=== PATIENT | male | born 1945 | race African-American/Black ===

== ENCOUNTER 2020-11-22 14:34 | Inpatient (IN) | payer MEDICARE, MEDICAID ==
[~2020-11-22] VITALS: Ht 175.3 cm; Wt 58.0 kg
[2020-11-22] MEDS ORDERED: SUPER BETA PROSTATE PO (14:47)
[2020-11-22] MEDS ORDERED: CHOL500043 PO (14:47)
[2020-11-22] MEDS ORDERED: ACET-3385 PO (14:47)
[2020-11-22] MEDS ORDERED: OMEP10 PO (14:47)
[2020-11-22] MEDS ORDERED: HYDR25TA2 PO (14:47)
[2020-11-22] MEDS ORDERED: ALLO100T2 PO (14:47)
[2020-11-22] MEDS ORDERED: AMLO-257 PO (14:47)
[2020-11-22 15:30] LABS: APPEARANCE,URINE CLEAR (CLEAR); BILIRUBIN,URINE NEGATIVE (NEGATIVE); GLUCOSE, URINE (UA) >=1000 mg/dL (NEGATIVE); KETONES,URINE 40 mg/dL (NEGATIVE); LEUKOCYTE ESTERASE ,URINE NEGATIVE (NEGATIVE); NITRATE,URINE NEGATIVE (NEGATIVE); OCCULT BLOOD,URINE LARGE (NEGATIVE); PROTEIN,URINE NEGATIVE (NEGATIVE); UROBILINOGEN,URINE 0.2 mg/dL (<=1.0)
[2020-11-22 15:43] LABS: BACTERIA,URINE Rare /HPF (None Seen); RBC,URINE None Seen /HPF (0-2); WBC,URINE 0-2 /HPF (0-5)
[2020-11-22 15:44] LABS: YEAST,URINE Few /HPF (None Seen)
[2020-11-22] MEDS ORDERED: SODIUM CHLORIDE 0.9% 1,000 ML IV ONE (15:45)
[2020-11-22 16:14] LABS: ABG A-A DIFF O2 12.7 mmHg (10-20.0); ABG BASE EXCESS -18.5 mmol/L (-2.0-3.0); ABG HCO3 12.1 mmol/L (22.0-26.0); ABG METHEMOGLOBIN 0.3 % (0.0-1.5); ABG OXYGEN CONTENT 18.9 mL/dL (15.0-23.0); ABG OXYGEN SATURATION 97.3 % (95.0-98.0); ABG PCO2 24 mmHg (35-45); ABG PH 7.215 (7.35-7.450); ABG TOTAL HEMOGLOBIN 13.8 G/dL (12.0-18.0); PO2, ARTERIAL BG 108.9 mmHg (75.0-83.0); SOURCE, BLOOD GAS ARTERIAL; TEMPERATURE, FAHRENHEIT, BG 98.6 FAHREN (96.0-98.6)
[2020-11-22 16:15] LABS: O2 DEVICE,BLOOD GAS ROOM AIR (ROOM AIR); SITE, BLOOD GAS LFT RADIAL
[2020-11-22 16:23] LABS: BASOPHILS % (AUTO) 0.6 % (0.0-2.0); EOSINOPHILS % (AUTO) 0 % (1.0-6.0); HEMOGLOBIN 13.1 g/dL (13.5-17.5); LYMPHOCYTES # (AUTO) 0.3 K/uL (1.0-4.8); MEAN CORPUSCULAR HEMOGLOBIN 33.1 pg (26.0-34.0); MEAN CORPUSCULAR HGB CONC 30.5 G/dL (31.0-37.0); MEAN CORPUSCULAR VOLUME 108 fL (80-100); MONOCYTES # (AUTO) 0.8 K/uL (0.1-1.0); MONOCYTES % (AUTO) 5.4 % (2.0-9.0); NEUTROPHILS # (AUTO) 14.2 K/uL (1.8-7.7); RED BLOOD CELL COUNT(AUTO) 3.97 MIL/uL (4.50-5.90); RED CELL DISTRIBUTION WIDTH 13.3 % (11.5-14.5)
[2020-11-22 16:36] LABS: INR 1.1 (0.9-1.1); PROTHROMBIN TIME 11.2 SEC (9.4-11.6)
[2020-11-22 16:46] LABS: B-TYPE NATRIURETIC PEPTIDE 150 pg/mL (0-100)
[2020-11-22 17:03] LABS: PLATELET COUNT (AUTO) 798 K/uL (150-450)
[2020-11-22 17:12] LABS: COVID AG,FIA SOURCE NASOPHARYNGEAL
[2020-11-22 17:53] LABS: ALANINE AMINOTRANSFERASE 74 U/L (12-78); ALBUMIN 4.1 g/dL (3.4-5.0); ALKALINE PHOSPHATASE 146 U/L (46-116); ANION GAP 39 mmol/L (8-16); ASPARTATE AMINOTRANSFERASE 77 U/L (15-37); BILIRUBIN,TOTAL 0.7 mg/dL (0.1-1.0); CARBON DIOXIDE 10 mmol/L (22-29); CHLORIDE 79 mmol/L (98-107); CREATINE KINASE, TOTAL ONLY 898 U/L (39-308); CREATININE 3.14 mg/dL (0.60-1.30); GLOMERULAR FILTR. RATE CALC 24 mL/min (>60); PHOSPHORUS 7.6 mg/dL (2.5-4.9); SODIUM SERUM 128 mmol/L (136-145); TOTAL PROTEIN, SERUM 8.4 g/dL (6.4-8.2); UREA NITROGEN, BLOOD 66 mg/dL (7-18)
[2020-11-22] MEDS ORDERED: INSULIN REGULAR, HUMAN 100 UNITS/ML IVP ONE ×2 (18:00→21:45)
[2020-11-22] MEDS ORDERED: INSULIN REGULAR, HUMAN 100 UNITS/ML IVP PRN ×2 (18:00→22:00)
[2020-11-22] MEDS ORDERED: DEXTROSE 5%-0.45% SODIUM CHL 1,000 ML IV PRN ×2 (18:00→22:00)
[2020-11-22] MEDS ORDERED: DEXTROSE 50%-WATER 25 GM/50 ML SYRINGE IVP PRN ×2 (18:00→22:00)
[2020-11-22] MEDS ORDERED: POTASSIUM CHL 20 MEQ/0.45% NS 1,000 ML IV PRN ×2 (18:00→22:00)
[2020-11-22] MEDS ORDERED: POTASSIUM CHLORIDE 40 MEQ in SODIUM CHLORIDE 0.45% 1,000 ML IV PRN ×2 (18:00→22:00)
[2020-11-22] MEDS ORDERED: SODIUM CHLORIDE 0.9% 1,000 ML IV SCH ×3 (18:00→22:00)
[2020-11-22] MEDS ORDERED: INSULIN REGULAR, HUMAN 100 UNITS in SODIUM CHLORIDE 0.9% 99 ML IV PRN ×6 (18:00→22:00)
[2020-11-22] MEDS ORDERED: SODIUM CHLORIDE 0.45% 1,000 ML IV PRN ×3 (18:00→22:00)
[2020-11-22 18:04] LABS: PLATELET MORPHOLOGY COMMENT GIANT PLTS PRESENT
[2020-11-22] MEDS ORDERED: ONDANSETRON HCL 4 MG/2 ML VIAL IVP PRN (18:15)
[2020-11-22] MEDS ORDERED: ACETAMINOPHEN 325 MG TABLET PO PRN (18:15)
[2020-11-22] MEDS: POTASSIUM CHL 20 MEQ/0.45% NS 1,000 ML IV PRN (18:23)
[2020-11-22 18:43] LABS: GLUCOSE,RANDOM 928 mg/dL (70-110)
[2020-11-22 19:56] LABS: GLUCOMETER DEV NAME(LOC) ERT.5; GLUCOSE,POINT OF CARE > 600 MG/DL (70-110)
[2020-11-22] MEDS ORDERED: HALOPERIDOL LACTATE 5 MG/ML VIAL IM ONE ×2 (20:00→21:30)
[2020-11-22 21:06] LABS: CALCIUM, TOTAL 8.8 mg/dL (8.8-10.5); CREATININE 2.93 mg/dL (0.60-1.30); POTASSIUM 3.3 mmol/L (3.5-5.1)
[2020-11-22] MEDS ORDERED: DiphenhydrAMINE HCL 50 MG/ML VIAL IM ONE (21:30)
[2020-11-22] MEDS ORDERED: LORazepam 2 MG/ML VIAL IM ONE (21:30)
[2020-11-22] MEDS: POTASSIUM CHLORIDE 40 MEQ in SODIUM CHLORIDE 0.45% 1,000 ML IV PRN (21:57)
[2020-11-22 22:25] LABS: BASOPHILS % (AUTO) 0.3 % (0.0-2.0); EOSINOPHILS % (AUTO) 0 % (1.0-6.0); HEMATOCRIT 39.3 % (41-53); HEMOGLOBIN 12.9 g/dL (13.5-17.5); LYMPHOCYTES # (AUTO) 0.4 K/uL (1.0-4.8); LYMPHOCYTES % (AUTO) 2.9 % (22.0-44.0); MEAN CORPUSCULAR HEMOGLOBIN 33.3 pg (26.0-34.0); MEAN CORPUSCULAR HGB CONC 32.8 G/dL (31.0-37.0); MEAN CORPUSCULAR VOLUME 102 fL (80-100); MONOCYTES # (AUTO) 0.2 K/uL (0.1-1.0); NEUTROPHILS # (AUTO) 14.5 K/uL (1.8-7.7); PLATELET COUNT (AUTO) 691 K/uL (150-450); RED BLOOD CELL COUNT(AUTO) 3.87 MIL/uL (4.50-5.90); RED CELL DISTRIBUTION WIDTH 12.7 % (11.5-14.5)
[2020-11-22 22:25] LABS: CALCIUM, TOTAL 8.8 mg/dL (8.8-10.5); CREATININE 2.81 mg/dL (0.60-1.30)
[2020-11-22 22:32] LABS: NEUTROPHILS % (AUTO) 95.8 % (40.0-70.0)
[2020-11-22 22:35] LABS: POTASSIUM 2.9 mmol/L (3.5-5.1)
[2020-11-22] MEDS ORDERED: POTASSIUM CHL 40 MEQ/D5-0.45NS 1,000 ML IV ONE (23:00)
[2020-11-22 23:05] LABS: PLATELET MORPHOLOGY COMMENT LARGE PLTS PRESENT
[2020-11-22] MEDS: INSULIN REGULAR, HUMAN 100 UNITS/ML IVP PRN (23:16)
[2020-11-23] MEDS: INSULIN REGULAR, HUMAN 100 UNITS/ML IVP PRN ×4 (00:13→23:23)
[2020-11-23] MEDS: HEPARIN SODIUM,PORCINE 5,000 UNITS/ML VIAL SQ SCH ×4 (00:14→23:47)
[2020-11-23 01:14] LABS: GLUCOMETER DEV NAME(LOC) ERT.5; GLUCOSE,POINT OF CARE 474 MG/DL (70-110)
[2020-11-23 01:14] LABS: GLUCOMETER DEV NAME(LOC) ERT.5; GLUCOSE,POINT OF CARE 283 MG/DL (70-110)
[2020-11-23 02:09] LABS: GLUCOMETER DEV NAME(LOC) ERT.5; GLUCOSE,POINT OF CARE 168 MG/DL (70-110)
[2020-11-23] MEDS: DEXTROSE 5%-0.45% SODIUM CHL 1,000 ML IV PRN ×2 (02:12→18:23)
[2020-11-23 03:16] LABS: GLUCOMETER DEV NAME(LOC) ERT.5; GLUCOSE,POINT OF CARE 120 MG/DL (70-110)
[2020-11-23 03:27] LABS: CREATININE 2.03 mg/dL (0.60-1.30)
[2020-11-23 03:54] LABS: GLUCOMETER DEV NAME(LOC) ERT.5; GLUCOSE,POINT OF CARE 91 MG/DL (70-110)
[2020-11-23] MEDS: DEXTROSE 50%-WATER 25 GM/50 ML SYRINGE IVP PRN ×2 (05:14→08:40)
[2020-11-23 05:20] LABS: GLUCOMETER DEV NAME(LOC) ERT.5; GLUCOSE,POINT OF CARE 46 MG/DL (70-110)
[2020-11-23 05:46] LABS: GLUCOMETER DEV NAME(LOC) ERT.5; GLUCOSE,POINT OF CARE 202 MG/DL (70-110)
[2020-11-23 06:02] LABS: GLUCOMETER DEV NAME(LOC) ERT.5; GLUCOSE,POINT OF CARE 181 MG/DL (70-110)
[2020-11-23] MEDS: POTASSIUM CHLORIDE 40 MEQ in SODIUM CHLORIDE 0.45% 1,000 ML IV PRN (06:18)
[2020-11-23 06:36] LABS: GLUCOMETER DEV NAME(LOC) ERT.5; GLUCOSE,POINT OF CARE 187 MG/DL (70-110)
[2020-11-23 07:10] LABS: GLUCOMETER DEV NAME(LOC) ERT.5; GLUCOSE,POINT OF CARE 129 MG/DL (70-110)
[2020-11-23 08:22] LABS: ALBUMIN 3.6 g/dL (3.4-5.0); BILIRUBIN,TOTAL 0.7 mg/dL (0.1-1.0); CALCIUM, TOTAL 8.1 mg/dL (8.8-10.5); CREATININE 1.73 mg/dL (0.60-1.30); MAGNESIUM 2.3 mg/dL (1.80-2.40); PHOSPHORUS 1.5 mg/dL (2.5-4.9); POTASSIUM 3.1 mmol/L (3.5-5.1); TOTAL PROTEIN, SERUM 7.2 g/dL (6.4-8.2)
[2020-11-23 08:40] LABS: GLUCOSE,POINT OF CARE 60 MG/DL (70-110)
[2020-11-23] MEDS ORDERED: POTASSIUM PHOS,M-BASIC-D-BASIC 30 MEQ in DEXTROSE 5%-WATER 150 ML IV ONE (09:30)
[2020-11-23 09:49] LABS: GLUCOMETER DEV NAME(LOC) ERT.5; GLUCOSE,POINT OF CARE 201 MG/DL (70-110)
[2020-11-23 10:38] LABS: GLUCOSE,POINT OF CARE 198 MG/DL (70-110)
[2020-11-23 11:25] LABS: GLUCOSE,POINT OF CARE 182 MG/DL (70-110)
[2020-11-23 12:24] LABS: CALCIUM, TOTAL 8.1 mg/dL (8.8-10.5); CREATININE 1.47 mg/dL (0.60-1.30); POTASSIUM 3.9 mmol/L (3.5-5.1)
[2020-11-23 12:29] LABS: GLUCOSE,POINT OF CARE 220 MG/DL (70-110)
[2020-11-23 14:01] LABS: GLUCOSE,POINT OF CARE 285 MG/DL (70-110)
[2020-11-23 16:14] LABS: CALCIUM, TOTAL 8.4 mg/dL (8.8-10.5); CREATININE 1.53 mg/dL (0.60-1.30)
[2020-11-23 16:40] LABS: GLUCOSE,POINT OF CARE 251 MG/DL (70-110)
[2020-11-23 17:53] LABS: GLUCOSE,POINT OF CARE 280 MG/DL (70-110)
[2020-11-23 18:49] LABS: GLUCOSE,POINT OF CARE 234 MG/DL (70-110)
[2020-11-23 20:00] LABS: ANION GAP 13 mmol/L (8-16); CALCIUM, TOTAL 8.7 mg/dL (8.8-10.5); CARBON DIOXIDE 19 mmol/L (22-29); CHLORIDE 107 mmol/L (98-107); CREATININE 1.27 mg/dL (0.60-1.30); GLUCOSE,RANDOM 291 mg/dL (70-110); POTASSIUM 3.9 mmol/L (3.5-5.1); SODIUM SERUM 139 mmol/L (136-145); UREA NITROGEN, BLOOD 37 mg/dL (7-18)
[2020-11-23 20:03] LABS: GLOMERULAR FILTR. RATE CALC > 60 mL/min (>60)
[2020-11-23 20:49] VITALS: BP 134/84
[2020-11-24] MEDS: INSULIN REGULAR, HUMAN 100 UNITS/ML IVP PRN ×2 (00:11→01:30)
[2020-11-24] MEDS: POTASSIUM CHLORIDE 40 MEQ in SODIUM CHLORIDE 0.45% 1,000 ML IV PRN (00:40)
[2020-11-24 01:38] LABS: CALCIUM, TOTAL 8.2 mg/dL (8.8-10.5); CREATININE 1.39 mg/dL (0.60-1.30)
[2020-11-24] MEDS: DEXTROSE 50%-WATER 25 GM/50 ML SYRINGE IVP PRN ×2 (04:13→06:12)
[2020-11-24 05:46] LABS: ANION GAP 11 mmol/L (8-16); CALCIUM, TOTAL 7.8 mg/dL (8.8-10.5); CARBON DIOXIDE 18 mmol/L (22-29); CHLORIDE 109 mmol/L (98-107); CREATININE 1.12 mg/dL (0.60-1.30); GLUCOSE,RANDOM 214 mg/dL (70-110); SODIUM SERUM 138 mmol/L (136-145); UREA NITROGEN, BLOOD 24 mg/dL (7-18)
[2020-11-24 05:47] LABS: GLOMERULAR FILTR. RATE CALC > 60 mL/min (>60)
[2020-11-24 06:15] LABS: ANION GAP 7 mmol/L (8-16); CALCIUM, TOTAL 8.5 mg/dL (8.8-10.5); CARBON DIOXIDE 27 mmol/L (22-29); CHLORIDE 106 mmol/L (98-107); CREATININE 0.81 mg/dL (0.60-1.30); GLUCOSE,RANDOM 104 mg/dL (70-110); POTASSIUM 4.2 mmol/L (3.5-5.1); SODIUM SERUM 140 mmol/L (136-145); UREA NITROGEN, BLOOD 15 mg/dL (7-18)
[2020-11-24 06:16] LABS: GLOMERULAR FILTR. RATE CALC > 60 mL/min (>60)
[2020-11-24 08:00] VITALS: BP 178/70
[2020-11-24] MEDS: HEPARIN SODIUM,PORCINE 5,000 UNITS/ML VIAL SQ SCH ×2 (08:10→16:26)
[2020-11-24] MEDS: POTASSIUM CHL 20 MEQ/0.45% NS 1,000 ML IV PRN (08:11)
[2020-11-24] MEDS: CHOLECALCIFEROL (VIT D3) 5,000 [125 MCG] UNITS CAPSULE PO SCH (10:46)
[2020-11-24] MEDS: AmLODIPine BESYLATE 5 MG TABLET PO SCH (10:46)
[2020-11-24] MEDS ORDERED: SODIUM CHLORIDE 0.9% 1,000 ML IV ONE (11:30)
[2020-11-24] MEDS ORDERED: DEXTROSE 50%-WATER 25 GM/50 ML SYRINGE IVP PRN (11:30)
[2020-11-24 12:00] VITALS: BP 154/62
[2020-11-24 13:13] LABS: BASOPHILS % (AUTO) 0.4 % (0.0-2.0); EOSINOPHILS % (AUTO) 0.3 % (1.0-6.0); HEMATOCRIT 36.3 % (41-53); HEMOGLOBIN 12.3 g/dL (13.5-17.5); LYMPHOCYTES # (AUTO) 1.1 K/uL (1.0-4.8); LYMPHOCYTES % (AUTO) 12.3 % (22.0-44.0); MEAN CORPUSCULAR HEMOGLOBIN 33.5 pg (26.0-34.0); MEAN CORPUSCULAR HGB CONC 33.8 G/dL (31.0-37.0); MEAN CORPUSCULAR VOLUME 99 fL (80-100); MONOCYTES # (AUTO) 0.9 K/uL (0.1-1.0); MONOCYTES % (AUTO) 10.1 % (2.0-9.0); NEUTROPHILS % (AUTO) 76.9 % (40.0-70.0); PLATELET COUNT (AUTO) 523 K/uL (150-450); RED BLOOD CELL COUNT(AUTO) 3.66 MIL/uL (4.50-5.90); RED CELL DISTRIBUTION WIDTH 12.9 % (11.5-14.5)
[2020-11-24 13:22] LABS: CREATININE,URINE RANDOM 59.5 mg/dL (30.0-125.0)
[2020-11-24 16:00] VITALS: BP 133/70
[2020-11-24] MEDS: LABETALOL HCL 100 MG TABLET PO SCH ×2 (16:26→21:56)
[2020-11-24] MEDS: INSULIN LISPRO 100 UNITS/ML SQ PRN (17:50)
[2020-11-24 20:03] VITALS: BP 100/54
[2020-11-25] MEDS: HEPARIN SODIUM,PORCINE 5,000 UNITS/ML VIAL SQ SCH ×2 (00:02→09:02)
[2020-11-25 00:04] VITALS: BP 99/54
[2020-11-25] MEDS: INSULIN LISPRO 100 UNITS/ML SQ PRN ×3 (01:25→11:58)
[2020-11-25 04:01] VITALS: BP 127/78
[2020-11-25 06:35] LABS: ANION GAP 7 mmol/L (8-16); CALCIUM, TOTAL 8.3 mg/dL (8.8-10.5); CARBON DIOXIDE 22 mmol/L (22-29); CHLORIDE 111 mmol/L (98-107); CREATININE 1.14 mg/dL (0.60-1.30); GLUCOSE,RANDOM 231 mg/dL (70-110); POTASSIUM 3.6 mmol/L (3.5-5.1); SODIUM SERUM 140 mmol/L (136-145); UREA NITROGEN, BLOOD 19 mg/dL (7-18)
[2020-11-25 06:41] LABS: GLOMERULAR FILTR. RATE CALC > 60 mL/min (>60)
[2020-11-25 08:00] VITALS: BP 143/61
[2020-11-25] MEDS: CHOLECALCIFEROL (VIT D3) 5,000 [125 MCG] UNITS CAPSULE PO SCH (09:02)
[2020-11-25] MEDS: LABETALOL HCL 100 MG TABLET PO SCH (09:02)
[2020-11-25] MEDS: AmLODIPine BESYLATE 5 MG TABLET PO SCH (09:02)
[2020-11-25] MEDS ORDERED: INSLAN SQ (11:15)
[2020-11-25] MEDS ORDERED: METF-960 PO (11:18)
[2020-11-25] MEDS ORDERED: ASPI81TA87 PO (11:18)
[2020-11-26 17:06] LABS: GLUCOSE,POINT OF CARE 383 MG/DL (70-110)
[2020-11-26 17:06] LABS: GLUCOSE,POINT OF CARE 113 MG/DL (70-110)
[2020-11-26 17:06] LABS: GLUCOSE,POINT OF CARE 209 MG/DL (70-110)
[2020-11-26 17:08] LABS: GLUCOSE,POINT OF CARE 429 MG/DL (70-110)
[2020-11-26 17:08] LABS: GLUCOSE,POINT OF CARE 396 MG/DL (70-110)
[2020-11-26 17:08] LABS: GLUCOSE,POINT OF CARE 366 MG/DL (70-110)
[2020-11-26 17:08] LABS: GLUCOSE,POINT OF CARE 83 MG/DL (70-110)
[2020-11-26 17:08] LABS: GLUCOSE,POINT OF CARE 303 MG/DL (70-110)
[2020-11-26 17:08] LABS: GLUCOSE,POINT OF CARE 120 MG/DL (70-110)
[2020-11-26 17:08] LABS: GLUCOSE,POINT OF CARE 372 MG/DL (70-110)
[2020-11-26 17:09] LABS: GLUCOSE,POINT OF CARE 181 MG/DL (70-110)
[2020-11-26 17:09] LABS: GLUCOSE,POINT OF CARE 187 MG/DL (70-110)
[2020-11-26 17:09] LABS: GLUCOSE,POINT OF CARE 279 MG/DL (70-110)
[2020-11-26 17:09] LABS: GLUCOSE,POINT OF CARE 340 MG/DL (70-110)
[2020-11-26 17:09] LABS: GLUCOSE,POINT OF CARE 37 MG/DL (70-110)
[2020-11-26 17:09] LABS: GLUCOSE,POINT OF CARE 67 MG/DL (70-110)
[2020-11-26 17:09] LABS: GLUCOSE,POINT OF CARE 76 MG/DL (70-110)
== END 2020-11-25 12:40 | disposition home or self-care (01) | DRG 637 ==
LOC: EMS 14:34 → ICU 11-23 18:55
PROVIDERS: ADMIT Internal Medicine; ATTEND Internal Medicine
DX: E11.10 Type 2 diabetes mellitus with ketoacidosis without coma (principal); G93.41 Metabolic encephalopathy; R65.11 Systemic inflammatory response syndrome (SIRS) of non-infectious origin with acute organ dysfunction; N17.9 Acute kidney failure, unspecified; Z20.822 Contact with and (suspected) exposure to COVID-19; D64.9 Anemia, unspecified; D47.3 Essential (hemorrhagic) thrombocythemia; I10 Essential (primary) hypertension; N28.1 Cyst of kidney, acquired; M19.90 Unspecified osteoarthritis, unspecified site; K21.9 Gastro-esophageal reflux disease without esophagitis; M10.9 Gout, unspecified; F12.90 Cannabis use, unspecified, uncomplicated; F17.210 Nicotine dependence, cigarettes, uncomplicated; Z72.89 Other problems related to lifestyle; Z79.4 Long term (current) use of insulin; Z87.19 Personal history of other diseases of the digestive system; Z87.448 Personal history of other diseases of urinary system
CPT/HCPCS: 36600; 71045; 76770; 80048; 80053; 81001; 82009; 82550; 82570; 82805; 82947; 82962; 83036; 83735; 83880; 83930; 84100; 84156; 84484; 85025; 85610; 85730; 87081; 93005; 99291; G0378; J1200; J1630; J1644; J1815; J2060; J3480; J3490; J7030; J7050; J7060; 36415-L1; 36415-TC

== ENCOUNTER 2020-12-04 18:28 | Emergency (ER) | payer MEDICARE, MEDICAID ==
[~2020-12-04] VITALS: Ht 167.6 cm; Wt 72.5 kg
[~2020-12-04 18:28] MED LIST: ALLO100T2 PO; AMLO-257 PO; ASPI81TA87 PO; CHOL500043 PO; INSLAN SQ; METF-960 PO; SUPER BETA PROSTATE PO
[2020-12-04 19:31] VITALS: BP 112/63
[2020-12-04 19:56] LABS: BASOPHILS % (AUTO) 0.4 % (0.0-2.0); EOSINOPHILS % (AUTO) 1.2 % (1.0-6.0); HEMATOCRIT 32.2 % (41-53); HEMOGLOBIN 10.7 g/dL (13.5-17.5); LYMPHOCYTES # (AUTO) 1.7 K/uL (1.0-4.8); LYMPHOCYTES % (AUTO) 20.8 % (22.0-44.0); MEAN CORPUSCULAR HGB CONC 33.3 G/dL (31.0-37.0); MEAN CORPUSCULAR VOLUME 102 fL (80-100); MONOCYTES # (AUTO) 0.4 K/uL (0.1-1.0); MONOCYTES % (AUTO) 5.1 % (2.0-9.0); NEUTROPHILS # (AUTO) 6.1 K/uL (1.8-7.7); NEUTROPHILS % (AUTO) 72.5 % (40.0-70.0); PLATELET COUNT (AUTO) 653 K/uL (150-450); RED BLOOD CELL COUNT(AUTO) 3.15 MIL/uL (4.50-5.90)
[2020-12-04 20:00] LABS: APPEARANCE,URINE TURBID (CLEAR); BILIRUBIN,URINE PRELIM. POSITIVE (NEGATIVE); GLUCOSE, URINE (UA) 500 mg/dL (NEGATIVE); KETONES,URINE TRACE mg/dL (NEGATIVE); LEUKOCYTE ESTERASE ,URINE LARGE (NEGATIVE); NITRATE,URINE NEGATIVE (NEGATIVE); OCCULT BLOOD,URINE LARGE (NEGATIVE); PH,URINE 6.5 (5.0-8.0); PROTEIN,URINE POS 1+ (NEGATIVE)
[2020-12-04 20:01] LABS: GLUCOSE,POINT OF CARE 243 MG/DL (70-110)
[2020-12-04 20:06] LABS: ANION GAP 7 mmol/L (8-16); CALCIUM, TOTAL 9.4 mg/dL (8.8-10.5); CARBON DIOXIDE 27 mmol/L (22-29); CHLORIDE 102 mmol/L (98-107); CREATININE 1.04 mg/dL (0.60-1.30); GLOMERULAR FILTR. RATE CALC > 60 mL/min (>60); GLUCOSE,RANDOM 279 mg/dL (70-110); POTASSIUM 3.7 mmol/L (3.5-5.1); SODIUM SERUM 136 mmol/L (136-145); UREA NITROGEN, BLOOD 12 mg/dL (7-18)
[2020-12-04 20:06] LABS: BACTERIA,URINE Many /HPF (None Seen); RBC,URINE 51-100 /HPF (0-2); SQUAMOUS EPITHELIAL CELL,UR Rare /LPF (None Seen); WBC,URINE 51-100 /HPF (0-5)
[2020-12-04 20:09] LABS: INR 0.9 (0.9-1.1); PROTHROMBIN TIME 9.9 SEC (9.4-11.6)
[2020-12-04 20:12] LABS: ALANINE AMINOTRANSFERASE 45 U/L (12-78); ALBUMIN 3.4 g/dL (3.4-5.0); ALKALINE PHOSPHATASE 107 U/L (46-116); ASPARTATE AMINOTRANSFERASE 37 U/L (15-37); BILIRUBIN,TOTAL 0.3 mg/dL (0.1-1.0); TOTAL PROTEIN, SERUM 7.5 g/dL (6.4-8.2)
[2020-12-04] MEDS ORDERED: CEPHALEXIN MONOHYDRATE 500 MG CAPSULE PO ONE (20:15)
== END 2020-12-04 20:50 | disposition home or self-care (01) ==
LOC: EMS 18:38
DX: N39.0 Urinary tract infection, site not specified (principal); E11.9 Type 2 diabetes mellitus without complications; I10 Essential (primary) hypertension; F17.210 Nicotine dependence, cigarettes, uncomplicated; F12.90 Cannabis use, unspecified, uncomplicated; Z79.84 Long term (current) use of oral hypoglycemic drugs; Z79.4 Long term (current) use of insulin
CPT/HCPCS: 80053; 81001; 82962; 85025; 85610; 85730; 87086; 99283

== ENCOUNTER 2020-12-06 18:23 | Inpatient (IN) | payer MEDICARE, MEDICAID ==
[~2020-12-06] VITALS: Ht 167.6 cm; Wt 56.3 kg
[2020-12-06 19:13] LABS: GLUCOSE,POINT OF CARE 235 MG/DL (70-110)
[2020-12-06 20:19] LABS: BASOPHILS % (AUTO) 0.3 % (0.0-2.0); EOSINOPHILS % (AUTO) 0.4 % (1.0-6.0); HEMATOCRIT 24.8 % (41-53); HEMOGLOBIN 8.3 g/dL (13.5-17.5); LYMPHOCYTES # (AUTO) 0.7 K/uL (1.0-4.8); MEAN CORPUSCULAR HGB CONC 33.3 G/dL (31.0-37.0); MEAN CORPUSCULAR VOLUME 102 fL (80-100); MONOCYTES # (AUTO) 0.4 K/uL (0.1-1.0); MONOCYTES % (AUTO) 3.5 % (2.0-9.0); NEUTROPHILS # (AUTO) 10.6 K/uL (1.8-7.7); PLATELET COUNT (AUTO) 570 K/uL (150-450); RED BLOOD CELL COUNT(AUTO) 2.43 MIL/uL (4.50-5.90); RED CELL DISTRIBUTION WIDTH 13.5 % (11.5-14.5)
[2020-12-06 20:20] LABS: NEUTROPHILS % (AUTO) 89.8 % (40.0-70.0)
[2020-12-06] MEDS ORDERED: LIDOCAINE 2% 30 ML JELLY TP ONE (20:30)
[2020-12-06 20:37] LABS: PROTHROMBIN TIME 10.7 SEC (9.4-11.6)
[2020-12-06] MEDS ORDERED: ONDANSETRON HCL 4 MG/2 ML VIAL IVP ONE (21:00)
[2020-12-06 21:18] LABS: ANION GAP 12 mmol/L (8-16); CALCIUM, TOTAL 8.7 mg/dL (8.8-10.5); CARBON DIOXIDE 23 mmol/L (22-29); CHLORIDE 102 mmol/L (98-107); CREATININE 0.94 mg/dL (0.60-1.30); GLUCOSE,RANDOM 268 mg/dL (70-110); POTASSIUM 3.9 mmol/L (3.5-5.1); SODIUM SERUM 137 mmol/L (136-145); UREA NITROGEN, BLOOD 15 mg/dL (7-18)
[2020-12-06 21:22] LABS: GLOMERULAR FILTR. RATE CALC > 60 mL/min (>60)
[2020-12-06 21:25] LABS: ALANINE AMINOTRANSFERASE 38 U/L (12-78); ALBUMIN 3.1 g/dL (3.4-5.0); ALKALINE PHOSPHATASE 84 U/L (46-116); ASPARTATE AMINOTRANSFERASE 30 U/L (15-37); BILIRUBIN,TOTAL 0.3 mg/dL (0.1-1.0); TOTAL PROTEIN, SERUM 6.4 g/dL (6.4-8.2)
[2020-12-06] MEDS ORDERED: HYDROGEN PEROXIDE 118 ML SOLUTION ONE ×2 (21:35→21:36)
[2020-12-06] MEDS ORDERED: ACETAMINOPHEN 325 MG TABLET PO PRN (22:00)
[2020-12-06] MEDS ORDERED: ONDANSETRON HCL 4 MG/2 ML VIAL IVP PRN (22:00)
[2020-12-06] MEDS ORDERED: HYDR25TA2 PO (22:33)
[2020-12-06] MEDS ORDERED: DEXTROSE 50%-WATER 25 GM/50 ML SYRINGE IVP PRN (22:45)
[2020-12-06 23:02] LABS: RETICULOCYTE % (AUTO) 2.7 % (0.5-2.3)
[2020-12-06 23:04] LABS: % IRON SATURATION 15.7 % (30-44)
[2020-12-06] MEDS: TAMSULOSIN HCL 0.4 MG CAPSULE PO SCH (23:11)
[2020-12-06] MEDS: CefTRIAXone 1 GM/DEXTROSE 50 ML IV SCH (23:11)
[2020-12-06 23:29] LABS: COVID AG,FIA SOURCE NASOPHARYNGEAL
[2020-12-06 23:38] LABS: APPEARANCE,URINE CLOUDY (CLEAR); BILIRUBIN,URINE NEGATIVE (NEGATIVE); GLUCOSE, URINE (UA) 100 mg/dL (NEGATIVE); KETONES,URINE NEGATIVE (NEGATIVE); LEUKOCYTE ESTERASE ,URINE TRACE (NEGATIVE); NITRATE,URINE NEGATIVE (NEGATIVE); OCCULT BLOOD,URINE LARGE (NEGATIVE); PROTEIN,URINE SEE CONFIRM (NEGATIVE); UROBILINOGEN,URINE 0.2 mg/dL (<=1.0)
[2020-12-06 23:52] LABS: SULFOSALICYLIC ACID,URINE 2+ (Negative)
[2020-12-06 23:53] LABS: RBC,URINE Full Field /HPF (0-2)
[2020-12-06 23:54] LABS: BACTERIA,URINE Moderate /HPF (None Seen)
[2020-12-07] VITALS (27 sets, daily range): BP systolic 95–117; BP diastolic 55–72
[2020-12-07] MEDS: SODIUM CHLORIDE 0.9% 1,000 ML IV SCH ×2 (00:01→11:50)
[2020-12-07] MEDS: INSULIN LISPRO 100 UNITS/ML SQ PRN ×4 (00:39→20:40)
[2020-12-07] MEDS ORDERED: INSULIN GLARGINE,HUM.REC.ANLOG 100 UNITS/ML SQ ONE (00:45)
[2020-12-07 02:02] LABS: GLUCOMETER DEV NAME(LOC) 6S.1; GLUCOSE,POINT OF CARE 425 MG/DL (70-110)
[2020-12-07] MEDS ORDERED: PNEUMOCOCCAL VACCINE POLYVALENT 0.5 ML VIAL [PPSV23] IM. ONE (02:30)
[2020-12-07] MEDS ORDERED: INFLUENZA VIRUS VACCINE QVS 2021-22 (6MO+)/PF 60 MCG/0.5 ML SYRINGE IM. ONE (02:30)
[2020-12-07 06:29] LABS: GLUCOMETER DEV NAME(LOC) 6S.1; GLUCOSE,POINT OF CARE 265 MG/DL (70-110)
[2020-12-07 07:02] LABS: HEMOGLOBIN 6.6 g/dL (13.5-17.5)
[2020-12-07 07:03] LABS: HEMATOCRIT 19.7 % (41-53)
[2020-12-07] MEDS: ALLOPURINOL 100 MG TABLET PO SCH (08:24)
[2020-12-07] MEDS: AmLODIPine BESYLATE 5 MG TABLET PO SCH (08:24)
[2020-12-07] MEDS: ASPIRIN 81 MG DR TABLET PO SCH (08:24)
[2020-12-07] MEDS: PANTOPRAZOLE SODIUM 40 MG/VIAL IVP SCH (08:24)
[2020-12-07 12:44] LABS: GLUCOMETER DEV NAME(LOC) 6N.1; GLUCOSE,POINT OF CARE 279 MG/DL (70-110)
[2020-12-07 20:26] LABS: GLUCOMETER DEV NAME(LOC) 6S.1; GLUCOSE,POINT OF CARE 196 MG/DL (70-110)
[2020-12-07 20:26] LABS: GLUCOMETER DEV NAME(LOC) 6S.1; GLUCOSE,POINT OF CARE 105 MG/DL (70-110)
[2020-12-07] MEDS: TAMSULOSIN HCL 0.4 MG CAPSULE PO SCH (20:39)
[2020-12-07] MEDS: INSULIN GLARGINE,HUM.REC.ANLOG 100 UNITS/ML SQ SCH (20:40)
[2020-12-07] MEDS: CefTRIAXone 1 GM/DEXTROSE 50 ML IV SCH (20:52)
[2020-12-08] VITALS (9 sets, daily range): BP systolic 98–144; BP diastolic 59–79
[2020-12-08] MEDS: SODIUM CHLORIDE 0.9% 1,000 ML IV SCH ×2 (01:05→15:13)
[2020-12-08 06:33] LABS: GLUCOMETER DEV NAME(LOC) 6S.1; GLUCOSE,POINT OF CARE 141 MG/DL (70-110)
[2020-12-08 07:08] LABS: HEMATOCRIT 26.8 % (41-53); HEMOGLOBIN 9.3 g/dL (13.5-17.5); MEAN CORPUSCULAR HEMOGLOBIN 32.5 pg (26.0-34.0); MEAN CORPUSCULAR HGB CONC 34.7 G/dL (31.0-37.0); MEAN CORPUSCULAR VOLUME 94 fL (80-100); PLATELET COUNT (AUTO) 369 K/uL (150-450); RED BLOOD CELL COUNT(AUTO) 2.87 MIL/uL (4.50-5.90); RED CELL DISTRIBUTION WIDTH 17.2 % (11.5-14.5)
[2020-12-08 07:30] LABS: MAGNESIUM 1.7 mg/dL (1.80-2.40); PHOSPHORUS 2.5 mg/dL (2.5-4.9)
[2020-12-08] MEDS: ALLOPURINOL 100 MG TABLET PO SCH (07:58)
[2020-12-08] MEDS: ASPIRIN 81 MG DR TABLET PO SCH (07:59)
[2020-12-08] MEDS: PANTOPRAZOLE SODIUM 40 MG/VIAL IVP SCH (07:59)
[2020-12-08] MEDS: AmLODIPine BESYLATE 5 MG TABLET PO SCH (08:04)
[2020-12-08 08:46] LABS: BAND NEUTROPHILS % (MANUAL) 1 % (0-5); LYMPHOCYTES % (MANUAL) 14 % (22-44); MONOCYTES % (MANUAL) 6 % (2-9); SEGMENTED NEUTROPHILS % 79 % (40-70)
[2020-12-08] MEDS ORDERED: SODIUM CL IRRIG SOLN BAG 3,000 ML IRRIG ONE (10:09)
[2020-12-08] MEDS ORDERED: SORBITOL IRRIGATION 3,000 ML IRRIG ONE (10:09)
[2020-12-08] MEDS ORDERED: RINGERS SOLUTION,LACTATED 1,000 ML IV ONE (10:10)
[2020-12-08] MEDS ORDERED: MEPERIDINE-PF 25 MG/ML VIAL IVP PRN (10:30)
[2020-12-08] MEDS ORDERED: HYDROmorphone 2 MG/ML VIAL IVP PRN (10:30)
[2020-12-08] MEDS ORDERED: FentaNYL CITRATE PF 100 MCG/2 ML VIAL IVP PRN (10:30)
[2020-12-08] MEDS ORDERED: SUGAMMADEX SODIUM 200 MG/2 ML VIAL IVP ONE (10:56)
[2020-12-08] MEDS ORDERED: HYDROmorphone 2 MG/ML VIAL ONE (11:56)
[2020-12-08] MEDS ORDERED: LIDOCAINE 2% 30 ML JELLY TP PRN (12:15)
[2020-12-08] MEDS ORDERED: LIDOCAINE 4% 50 ML SOLUTION TP ONE (12:30)
[2020-12-08] MEDS: PHENAZOPYRIDINE HCL 200 MG TABLET PO SCH ×3 (13:17→21:38)
[2020-12-08] MEDS: INSULIN LISPRO 100 UNITS/ML SQ PRN ×3 (13:18→21:43)
[2020-12-08] MEDS ORDERED: MAGNESIUM SULFATE 2 GM/WATER 50 ML IV PRN (14:45)
[2020-12-08] MEDS ORDERED: MAGNESIUM SULFATE 4 GM/WATER 100 ML IV PRN (14:45)
[2020-12-08] MEDS ORDERED: SODIUM CL IRRIG SOLN BOTTLE 250 ML IRRIG ONE (14:58)
[2020-12-08] MEDS ORDERED: ACETAMINOPHEN 325 MG TABLET PO PRN (15:00)
[2020-12-08] MEDS: MAGNESIUM OXIDE 400 MG TABLET PO PRN ×3 (15:11→21:38)
[2020-12-08] MEDS: OXYGEN THERAPY IH SCH (20:00)
[2020-12-08 20:14] LABS: GLUCOMETER DEV NAME(LOC) 6N.1; GLUCOSE,POINT OF CARE 167 MG/DL (70-110)
[2020-12-08 20:14] LABS: GLUCOMETER DEV NAME(LOC) 6N.1; GLUCOSE,POINT OF CARE 352 MG/DL (70-110)
[2020-12-08] MEDS: TAMSULOSIN HCL 0.4 MG CAPSULE PO SCH (21:38)
[2020-12-08] MEDS: INSULIN GLARGINE,HUM.REC.ANLOG 100 UNITS/ML SQ SCH (21:42)
[2020-12-08 22:16] LABS: GLUCOMETER DEV NAME(LOC) 6N.1; GLUCOSE,POINT OF CARE 311 MG/DL (70-110)
[2020-12-08] MEDS: CefTRIAXone 1 GM/DEXTROSE 50 ML IV SCH (23:29)
[2020-12-09] MEDS ORDERED: ROCURONIUM BROMIDE 10 MG/ML 5 ML VIAL IVP ONE (01:45)
[2020-12-09] MEDS ORDERED: PROPOFOL 1% 20 ML VIAL IVP ONE (01:45)
[2020-12-09] MEDS ORDERED: 0.9% SODIUM CHLORIDE 10 ML VIAL IVP ONE (01:45)
[2020-12-09] MEDS ORDERED: ONDANSETRON HCL 4 MG/2 ML VIAL IVP ONE (01:45)
[2020-12-09] MEDS ORDERED: DEXAMETHASONE SOD PHOS 4 MG/ML VIAL IVP ONE (01:45)
[2020-12-09] MEDS ORDERED: METOPROLOL TARTRATE 5 MG/5 ML VIAL IVP ONE (01:45)
[2020-12-09] MEDS ORDERED: LIDOCAINE/PF 2% 5 ML VIAL IM ONE (01:45)
[2020-12-09] MEDS ORDERED: MIDAZOLAM HCL 2 MG/2 ML VIAL IVP ONE (02:37)
[2020-12-09] MEDS ORDERED: FentaNYL CITRATE PF 100 MCG/2 ML VIAL IVP ONE (02:37)
[2020-12-09 03:48] VITALS: BP 145/82
[2020-12-09] MEDS: SODIUM CHLORIDE 0.9% 1,000 ML IV SCH ×2 (04:34→11:39)
[2020-12-09] MEDS: INSULIN LISPRO 100 UNITS/ML SQ PRN ×4 (06:22→20:18)
[2020-12-09 06:26] LABS: GLUCOMETER DEV NAME(LOC) 6N.1; GLUCOSE,POINT OF CARE 211 MG/DL (70-110)
[2020-12-09] MEDS: OXYGEN THERAPY IH SCH ×2 (08:00→20:19)
[2020-12-09] MEDS: AmLODIPine BESYLATE 5 MG TABLET PO SCH (08:46)
[2020-12-09] MEDS: ALLOPURINOL 100 MG TABLET PO SCH (08:47)
[2020-12-09] MEDS: HYDROCHLOROTHIAZIDE 25 MG TABLET PO SCH (08:47)
[2020-12-09] MEDS: PHENAZOPYRIDINE HCL 200 MG TABLET PO SCH ×3 (08:47→20:14)
[2020-12-09] MEDS: ASPIRIN 81 MG DR TABLET PO SCH (08:47)
[2020-12-09] MEDS: PANTOPRAZOLE SODIUM 40 MG/VIAL IVP SCH (08:47)
[2020-12-09 15:50] VITALS: BP 140/99
[2020-12-09 15:51] LABS: GLUCOMETER DEV NAME(LOC) 6S.1; GLUCOSE,POINT OF CARE 311 MG/DL (70-110)
[2020-12-09] MEDS ORDERED: SODIUM CHLORIDE 0.9% 500 ML IV ONE (17:48)
[2020-12-09 18:34] LABS: GLUCOMETER DEV NAME(LOC) 6N.1; GLUCOSE,POINT OF CARE 224 MG/DL (70-110)
[2020-12-09] MEDS: TAMSULOSIN HCL 0.4 MG CAPSULE PO SCH (20:14)
[2020-12-09] MEDS: INSULIN GLARGINE,HUM.REC.ANLOG 100 UNITS/ML SQ SCH (20:17)
[2020-12-09 20:41] VITALS: BP 120/62
[2020-12-09 21:41] LABS: GLUCOMETER DEV NAME(LOC) 6N.1; GLUCOSE,POINT OF CARE 165 MG/DL (70-110)
[2020-12-09] MEDS: ZOLPIDEM TARTRATE 5 MG TABLET PO PRN (22:02)
[2020-12-09 22:35] VITALS: BP 132/90
[2020-12-09] MEDS: CefTRIAXone 1 GM/DEXTROSE 50 ML IV SCH (23:15)
[2020-12-10 01:50] VITALS: BP 121/78
[2020-12-10 05:00] VITALS: BP 113/69
[2020-12-10 06:50] LABS: BASOPHILS % (AUTO) 0.3 % (0.0-2.0); EOSINOPHILS % (AUTO) 2.3 % (1.0-6.0); HEMATOCRIT 35.5 % (41-53); HEMOGLOBIN 11.8 g/dL (13.5-17.5); LYMPHOCYTES # (AUTO) 1.5 K/uL (1.0-4.8); LYMPHOCYTES % (AUTO) 23.5 % (22.0-44.0); MEAN CORPUSCULAR HEMOGLOBIN 30.5 pg (26.0-34.0); MEAN CORPUSCULAR HGB CONC 33.3 G/dL (31.0-37.0); MEAN CORPUSCULAR VOLUME 92 fL (80-100); MONOCYTES # (AUTO) 0.5 K/uL (0.1-1.0); MONOCYTES % (AUTO) 8.6 % (2.0-9.0); NEUTROPHILS # (AUTO) 4.1 K/uL (1.8-7.7); NEUTROPHILS % (AUTO) 65.3 % (40.0-70.0); PLATELET COUNT (AUTO) 439 K/uL (150-450); RED BLOOD CELL COUNT(AUTO) 3.86 MIL/uL (4.50-5.90); RED CELL DISTRIBUTION WIDTH 17.6 % (11.5-14.5)
[2020-12-10] MEDS ORDERED: SORBITOL IRRIGATION 9,000 ML IRRIG ONE (07:00)
[2020-12-10 07:36] LABS: GLUCOMETER DEV NAME(LOC) 6S.1; GLUCOSE,POINT OF CARE 129 MG/DL (70-110)
[2020-12-10 08:00] VITALS: BP 113/61
[2020-12-10] MEDS: OXYGEN THERAPY IH SCH ×3 (08:00→20:41)
[2020-12-10] MEDS ORDERED: RINGERS SOLUTION,LACTATED 1,000 ML IV ONE ×2 (08:00→08:07)
[2020-12-10] MEDS: HYDROCHLOROTHIAZIDE 25 MG TABLET PO SCH (09:00)
[2020-12-10] MEDS: PHENAZOPYRIDINE HCL 200 MG TABLET PO SCH ×3 (09:00→20:37)
[2020-12-10] MEDS: AmLODIPine BESYLATE 5 MG TABLET PO SCH (09:00)
[2020-12-10] MEDS ORDERED: MEPERIDINE-PF 25 MG/ML VIAL IVP PRN (10:15)
[2020-12-10] MEDS ORDERED: FentaNYL CITRATE PF 100 MCG/2 ML VIAL IVP PRN (10:15)
[2020-12-10] MEDS ORDERED: HYDROmorphone 2 MG/ML VIAL IVP PRN (10:15)
[2020-12-10] MEDS ORDERED: SUGAMMADEX SODIUM 200 MG/2 ML VIAL IVP ONE (11:00)
[2020-12-10] MEDS ORDERED: OPIUM/BELLADONNA ALK 60 MG-16.2 MG RECTAL SUPPOSITORY PR ONE (11:15)
[2020-12-10] MEDS ORDERED: LIDOCAINE 2% 5 ML JELLY ONE (11:46)
[2020-12-10 12:33] LABS: BASOPHILS % (AUTO) 0.2 % (0.0-2.0); EOSINOPHILS % (AUTO) 0.7 % (1.0-6.0); HEMATOCRIT 36.2 % (41-53); LYMPHOCYTES # (AUTO) 0.6 K/uL (1.0-4.8); LYMPHOCYTES % (AUTO) 8.2 % (22.0-44.0); MEAN CORPUSCULAR HEMOGLOBIN 31.1 pg (26.0-34.0); MEAN CORPUSCULAR HGB CONC 33.3 G/dL (31.0-37.0); MEAN CORPUSCULAR VOLUME 93 fL (80-100); MONOCYTES # (AUTO) 0.2 K/uL (0.1-1.0); NEUTROPHILS # (AUTO) 6.7 K/uL (1.8-7.7); PLATELET COUNT (AUTO) 401 K/uL (150-450); RED BLOOD CELL COUNT(AUTO) 3.87 MIL/uL (4.50-5.90); RED CELL DISTRIBUTION WIDTH 17.4 % (11.5-14.5)
[2020-12-10 12:41] LABS: NEUTROPHILS % (AUTO) 87.9 % (40.0-70.0)
[2020-12-10 12:49] LABS: INR 0.9 (0.9-1.1)
[2020-12-10 12:54] LABS: ALANINE AMINOTRANSFERASE 77 U/L (12-78); ALKALINE PHOSPHATASE 161 U/L (46-116); ANION GAP 13 mmol/L (8-16); ASPARTATE AMINOTRANSFERASE 211 U/L (15-37); BILIRUBIN,TOTAL 1.9 mg/dL (0.1-1.0); CARBON DIOXIDE 23 mmol/L (22-29); CHLORIDE 93 mmol/L (98-107); CREATININE 0.78 mg/dL (0.60-1.30); GLOMERULAR FILTR. RATE CALC > 60 mL/min (>60); GLUCOSE,RANDOM 349 mg/dL (70-110); POTASSIUM 3.7 mmol/L (3.5-5.1); SODIUM SERUM 129 mmol/L (136-145); TOTAL PROTEIN, SERUM 6.1 g/dL (6.4-8.2); UREA NITROGEN, BLOOD 9 mg/dL (7-18)
[2020-12-10 13:00] VITALS: BP 103/66
[2020-12-10] MEDS: ALLOPURINOL 100 MG TABLET PO SCH (15:51)
[2020-12-10] MEDS: ASPIRIN 81 MG DR TABLET PO SCH (15:52)
[2020-12-10] MEDS: PANTOPRAZOLE SODIUM 40 MG/VIAL IVP SCH (15:52)
[2020-12-10] MEDS: SODIUM CHLORIDE 0.9% 1,000 ML IV SCH ×2 (15:54→19:50)
[2020-12-10 16:34] VITALS: BP 106/69
[2020-12-10] MEDS: INSULIN LISPRO 100 UNITS/ML SQ PRN ×2 (17:06→20:40)
[2020-12-10 18:02] LABS: GLUCOMETER DEV NAME(LOC) 6S.1; GLUCOSE,POINT OF CARE 440 MG/DL (70-110)
[2020-12-10 19:12] LABS: GLUCOMETER DEV NAME(LOC) 6N.1; GLUCOSE,POINT OF CARE 368 MG/DL (70-110)
[2020-12-10 19:12] LABS: GLUCOMETER DEV NAME(LOC) 6N.1; GLUCOSE,POINT OF CARE 462 MG/DL (70-110)
[2020-12-10 19:30] VITALS: BP 97/57
[2020-12-10] MEDS: TAMSULOSIN HCL 0.4 MG CAPSULE PO SCH (20:37)
[2020-12-10] MEDS: INSULIN GLARGINE,HUM.REC.ANLOG 100 UNITS/ML SQ SCH (20:41)
[2020-12-10] MEDS: CefTRIAXone 1 GM/DEXTROSE 50 ML IV SCH (22:07)
[2020-12-11 00:08] LABS: GLUCOMETER DEV NAME(LOC) 6N.1; GLUCOSE,POINT OF CARE 379 MG/DL (70-110)
[2020-12-11] MEDS ORDERED: ONDANSETRON HCL 4 MG/2 ML VIAL IVP ONE (03:07)
[2020-12-11] MEDS ORDERED: METOPROLOL TARTRATE 5 MG/5 ML VIAL IVP ONE (03:07)
[2020-12-11] MEDS ORDERED: LIDOCAINE/PF 2% 5 ML SYRINGE IVP ONE (03:07)
[2020-12-11] MEDS ORDERED: 0.9% SODIUM CHLORIDE 10 ML VIAL IVP ONE (03:07)
[2020-12-11] MEDS ORDERED: ROCURONIUM BROMIDE 10 MG/ML 5 ML VIAL IVP ONE (03:07)
[2020-12-11] MEDS ORDERED: DEXAMETHASONE SOD PHOS 4 MG/ML VIAL IVP ONE (03:07)
[2020-12-11] MEDS ORDERED: EPHEDrine SULFATE 50 MG/ML VIAL IM ONE (03:07)
[2020-12-11] MEDS ORDERED: PROPOFOL 1% 20 ML VIAL IVP ONE (03:07)
[2020-12-11] MEDS ORDERED: FentaNYL CITRATE PF 100 MCG/2 ML VIAL IVP ONE (03:07)
[2020-12-11 04:00] VITALS: BP 125/55
[2020-12-11] MEDS: INSULIN LISPRO 100 UNITS/ML SQ PRN ×4 (05:31→20:07)
[2020-12-11 05:50] LABS: GLUCOMETER DEV NAME(LOC) 6S.1; GLUCOSE,POINT OF CARE 191 MG/DL (70-110)
[2020-12-11] MEDS: OXYGEN THERAPY IH SCH ×3 (08:00→21:59)
[2020-12-11 08:01] VITALS: BP 107/59
[2020-12-11] MEDS: ASPIRIN 81 MG DR TABLET PO SCH (08:07)
[2020-12-11] MEDS: AmLODIPine BESYLATE 5 MG TABLET PO SCH (08:07)
[2020-12-11] MEDS: PHENAZOPYRIDINE HCL 200 MG TABLET PO SCH ×3 (08:07→20:05)
[2020-12-11] MEDS: ALLOPURINOL 100 MG TABLET PO SCH (08:07)
[2020-12-11] MEDS: PANTOPRAZOLE SODIUM 40 MG/VIAL IVP SCH (08:07)
[2020-12-11] MEDS: HYDROCHLOROTHIAZIDE 25 MG TABLET PO SCH ×2 (08:08→17:08)
[2020-12-11 13:50] LABS: GLUCOMETER DEV NAME(LOC) 6N.1; GLUCOSE,POINT OF CARE 266 MG/DL (70-110)
[2020-12-11 15:36] VITALS: BP 136/77
[2020-12-11 20:00] VITALS: BP 142/82
[2020-12-11] MEDS: TAMSULOSIN HCL 0.4 MG CAPSULE PO SCH (20:05)
[2020-12-11] MEDS: ZOLPIDEM TARTRATE 5 MG TABLET PO PRN (20:05)
[2020-12-11] MEDS: INSULIN GLARGINE,HUM.REC.ANLOG 100 UNITS/ML SQ SCH (20:06)
[2020-12-11] MEDS: SODIUM CHLORIDE 0.9% 1,000 ML IV SCH (21:50)
[2020-12-11 21:57] LABS: GLUCOMETER DEV NAME(LOC) 6S.1; GLUCOSE,POINT OF CARE 246 MG/DL (70-110)
[2020-12-11 21:57] LABS: GLUCOMETER DEV NAME(LOC) 6N.1; GLUCOSE,POINT OF CARE 225 MG/DL (70-110)
[2020-12-11] MEDS: CefTRIAXone 1 GM/DEXTROSE 50 ML IV SCH (22:21)
[2020-12-12 04:00] VITALS: BP 134/78
[2020-12-12] MEDS: INSULIN LISPRO 100 UNITS/ML SQ PRN ×2 (06:16→12:02)
[2020-12-12 07:42] VITALS: BP 115/68
[2020-12-12 07:54] LABS: GLUCOMETER DEV NAME(LOC) 6N.1; GLUCOSE,POINT OF CARE 153 MG/DL (70-110)
[2020-12-12] MEDS: PANTOPRAZOLE SODIUM 40 MG/VIAL IVP SCH (08:53)
[2020-12-12] MEDS: AmLODIPine BESYLATE 5 MG TABLET PO SCH (08:53)
[2020-12-12] MEDS: ASPIRIN 81 MG DR TABLET PO SCH (08:53)
[2020-12-12] MEDS: ALLOPURINOL 100 MG TABLET PO SCH (08:53)
[2020-12-12] MEDS: PHENAZOPYRIDINE HCL 200 MG TABLET PO SCH (08:54)
[2020-12-12] MEDS: HYDROCHLOROTHIAZIDE 25 MG TABLET PO SCH (08:54)
[2020-12-12] MEDS: OXYGEN THERAPY IH SCH (08:55)
[2020-12-12] MEDS: SODIUM CHLORIDE 0.9% 1,000 ML IV SCH (12:24)
[2020-12-12] MEDS ORDERED: CEPH500C3 PO (13:23)
[2020-12-12] MEDS ORDERED: TAMS-13 PO (13:24)
[2020-12-12] MEDS ORDERED: PHEN-1103 PO (13:25)
[2020-12-12 14:50] LABS: GLUCOMETER DEV NAME(LOC) 6S.1; GLUCOSE,POINT OF CARE 338 MG/DL (70-110)
[2020-12-13] MEDS ORDERED: CHOLECALCIFEROL (VIT D3) 50,000 UNITS [1,250 MCG] CAPSULE PO SCH (09:00)
== END 2020-12-12 14:25 | disposition home or self-care (01) | DRG 666 ==
LOC: EMS 18:28 → 6N 22:00
PROVIDERS: ADMIT Internal Medicine; ATTEND Internal Medicine
PROC: 30233N1 Transfusion of Nonautologous Red Blood Cells into Peripheral Vein, Percutaneous Approach (ICD-10-PCS; 2020-12-07)
PROC: 0TCB8ZZ Extirpation of Matter from Bladder, Via Natural or Artificial Opening Endoscopic (ICD-10-PCS; 2020-12-08)
PROC: 0V508ZZ Destruction of Prostate, Via Natural or Artificial Opening Endoscopic (ICD-10-PCS; principal; 2020-12-08 10:30)
PROC: 0VB08ZZ Excision of Prostate, Via Natural or Artificial Opening Endoscopic (ICD-10-PCS; 2020-12-10)
DX: N30.01 Acute cystitis with hematuria (principal); D62 Acute posthemorrhagic anemia; N40.1 Benign prostatic hyperplasia with lower urinary tract symptoms; I86.2 Pelvic varices; E11.65 Type 2 diabetes mellitus with hyperglycemia; I10 Essential (primary) hypertension; R33.8 Other retention of urine; Z20.822 Contact with and (suspected) exposure to COVID-19; M10.9 Gout, unspecified; Z87.891 Personal history of nicotine dependence
CPT/HCPCS: 51702; 74176; 80053; 81001; 81002; 82948; 82962; 83540; 83550; 83735; 84100; 85007; 85014; 85018; 85025; 85027; 85045; 85610; 85730; 86850; 86900; 86901; 86923; 87040; 87081; 87086; 88305; 88341; 88342; 93005; 99285; C9113; J0696; J1100; J1170; J1815; J2250; J2405; J2704; J3010; J3490; J7030; J7040; J7120; P9016; Q9967; 36415-L1; 36415-TC; Z7610